=== PATIENT | female | born 1970 | race Two or more races ===

== ENCOUNTER 2023-09-02 07:20 | Emergency (ER) | payer MEDICAID ==
[~2023-09-02] VITALS: Ht 149.9 cm; Wt 78.8 kg
[~2023-09-02 07:20] MED LIST: ASPI-1264 PO; IBUP-1984 PO
[2023-09-02 07:32] VITALS: BP 160/81; PULSE 116; TEMP 98; O2SAT 97
[2023-09-02 09:23] VITALS: RESP 18
[2023-09-02 10:16] LABS: BASOPHILS # (AUTO) 0.1 X10'3 (0-0.2); BASOPHILS % (AUTO) 1.3 % (0-1); EOSINOPHILS # (AUTO) 0.1 X10'3 (0-0.9); EOSINOPHILS % (AUTO) 0.8 % (0-6); HEMATOCRIT 41.8 % (35.0-45.0); HEMOGLOBIN 13.9 g/dl (12.0-16.0); LYMPHOCYTES # (AUTO) 2.6 X10'3 (1.1-4.8); MEAN CORPUSCULAR HEMOGLOBIN 30.4 PG (27.0-31.0); MEAN CORPUSCULAR HGB CONC 33.3 g/dL (33.0-36.5); MEAN CORPUSCULAR VOLUME 91.3 FL (78-98); MEAN PLATELET VOLUME 8.7 FL (7.4-10.4); MONOCYTES # (AUTO) 0.5 X10'3 (0-0.9); MONOCYTES % (AUTO) 5.9 % (2-12); NEUTROPHILS # (AUTO) 5.5 X10'3 (1.8-7.7); PLATELET COUNT 276 X10'3 (140-440); RED BLOOD COUNT 4.57 X10'6 (4.20-5.60); RED CELL DISTRIBUTION WIDTH 14.2 % (11.5-14.5); WHITE BLOOD COUNT 8.8 X10'3 (4.5-11.0)
[2023-09-02 10:29] LABS: ALANINE AMINOTRANSFERASE 29 U/L (12-78); ALBUMIN 3.7 G/DL (3.4-5.0); ALKALINE PHOSPHATASE 81 IU/L (46-116); ANION GAP 8 (8-16); ASPARTATE AMINO TRANSFERASE 18 U/L (10-37); BILIRUBIN,TOTAL 0.4 MG/DL (0.1-1.0); BLOOD UREA NITROGEN 4 MG/DL (7-18); BUN/CREATININE RATIO 5.2 (10.0-20.0); CALCIUM 9.1 MG/DL (8.5-10.1); CHLORIDE 103 MMOL/L (99-107); CREATININE 0.77 MG/DL (0.40-0.90); GLUCOSE 87 MG/DL (70-104); POTASSIUM 3.9 MMOL/L (3.5-5.1); SODIUM 137 MMOL/L (135-145); TOTAL PROTEIN 7.5 G/DL (6.4-8.2); eCRCL 58 ML/MIN; eGFR 78 ML/MIN
[2023-09-02 10:33] LABS: ETHANOL < 10 MG/DL (<10)
== END 2023-09-02 11:40 | disposition home or self-care (01) ==
LOC: ER 07:21
DX: K02.9 Dental caries, unspecified (principal); F32.A Depression, unspecified; R44.0 Auditory hallucinations; R06.02 Shortness of breath; J45.909 Unspecified asthma, uncomplicated; Z79.82 Long term (current) use of aspirin; Z79.899 Other long term (current) drug therapy; Z88.0 Allergy status to penicillin; Z88.8 Allergy status to other drugs, medicaments and biological substances
CPT/HCPCS: 36415; 70450; 80053; 80320; 85025; 99284

== ENCOUNTER 2024-01-06 12:25 | Emergency (ER) | payer MEDICAID ==
[~2024-01-06] VITALS: Ht 162.6 cm; Wt 79.5 kg
[2024-01-06 12:32] VITALS: BP 100/47; PULSE 95; O2SAT 96
[2024-01-06] MEDS ORDERED: HYDR-3965 PO (13:48)
[2024-01-06 14:00] VITALS: RESP 17; TEMP 98.2
== END 2024-01-06 14:03 | disposition home or self-care (01) ==
LOC: ER 12:26
DX: S90.31XA Contusion of right foot, initial encounter (principal); J45.909 Unspecified asthma, uncomplicated; Z88.0 Allergy status to penicillin; Z88.5 Allergy status to narcotic agent; Z79.1 Long term (current) use of non-steroidal anti-inflammatories (NSAID); Z79.82 Long term (current) use of aspirin; X58.XXXA Exposure to other specified factors, initial encounter; Y93.89 Activity, other specified; Y92.89 Other specified places as the place of occurrence of the external cause; Y99.8 Other external cause status
CPT/HCPCS: 73630; 99283; L3260

== ENCOUNTER 2024-07-11 11:52 | Emergency (ER) | payer MEDICAID ==
[~2024-07-11] VITALS: Ht 147.3 cm; Wt 79.5 kg
[2024-07-11 11:53] VITALS: BP 117/59; PULSE 90; RESP 18; O2SAT 95
[2024-07-11 12:33] VITALS: TEMP 98
== END 2024-07-11 12:34 | disposition home or self-care (01) ==
LOC: ER 11:53
DX: M25.562 Pain in left knee (principal); J45.909 Unspecified asthma, uncomplicated; Z88.0 Allergy status to penicillin; Z88.5 Allergy status to narcotic agent; Z79.1 Long term (current) use of non-steroidal anti-inflammatories (NSAID); Z79.82 Long term (current) use of aspirin; W19.XXXA Unspecified fall, initial encounter; Y93.89 Activity, other specified; Y92.89 Other specified places as the place of occurrence of the external cause; Y99.8 Other external cause status
CPT/HCPCS: 73564; 99284; A6449